=== PATIENT | male | born 1940 | race Two or more races ===

== ENCOUNTER 2021-11-23 14:33 | Emergency (ER) | payer OTHER ==
[~2021-11-23] VITALS: Ht 188 cm; Wt 90.7 kg
--- NOTE | 2021-11-23 15:00 | NUR ---
81 yrs male came from [facility] c/o unhealin open skin for 1 yrs on right leg no redness no bleeding no swallen skin intack no redness around wound
[2021-11-23] MEDS ORDERED: SULF1TAB47 PO (15:27)
--- NOTE | 2021-11-23 15:47 | NUR ---
CALLED [facility] AND SET UP S TRANSPORT ETA 170
--- NOTE | 2021-11-23 15:55 | NUR ---
clean right leg with NS AND XEREFORM APPLED OK with Dr Santos and cralex dressing appled
[2021-11-23 16:30] VITALS: BP 133/81
--- NOTE | 2021-11-23 16:30 | NUR ---
REPORT GIVEN TO EMT FOR PT TRANSFER BACK TO [facility]
== END 2021-11-23 16:31 | disposition home or self-care (01) ==
LOC: ER 14:38
DX: S81.801A Unspecified open wound, right lower leg, initial encounter (principal); I10 Essential (primary) hypertension; F41.9 Anxiety disorder, unspecified; X58.XXXA Exposure to other specified factors, initial encounter; Y93.9 Activity, unspecified; Y92.89 Other specified places as the place of occurrence of the external cause; Y99.8 Other external cause status